=== PATIENT | male | born 1930 | race Caucasian/White ===

== ENCOUNTER → 2017-07-01 | Outpatient (CLI) | payer MEDICARE ==
[2017-07-01 11:37] LABS: CALCIUM 9.4 mg/dL (8.4-10.2); CREATININE, serum 1.02 mg/dL (0.66-1.25); POTASSIUM 4.5 mmol/L (3.4-5.0)
== END ==
LOC: ZLAB.STJ 10:48
PROVIDERS: Internal Medicine
DX: I10 Essential (primary) hypertension (principal)

== ENCOUNTER → 2018-03-20 | Outpatient (CLI) | payer MEDICARE, MEDICAID | LOC: COL.RAD 15:43 | DX: S62.524A Nondisplaced fracture of distal phalanx of right thumb, initial encounter for closed fracture (principal); W19.XXXA Unspecified fall, initial encounter ==

== ENCOUNTER → 2018-04-01 | Outpatient (CLI) | payer MEDICARE, MEDICAID ==
[2018-04-01 16:23] LABS: CALCIUM 9.3 mg/dL (8.4-10.2); CREATININE, serum 1.23 mg/dL (0.66-1.25); POTASSIUM 4.1 mmol/L (3.4-5.0)
== END ==
LOC: ZLAB.STJ 15:48 → ZCOL.LAB 15:48
PROVIDERS: Internal Medicine
DX: R79.89 Other specified abnormal findings of blood chemistry (principal)

== ENCOUNTER 2018-06-14 17:57 | Inpatient (IN) | payer MEDICARE, MEDICAID ==
[~2018-06-14] VITALS: Ht 162.6 cm; Wt 66.2 kg
[2018-06-14 18:40] LABS: BASO % 0.4 % (0.0-2.0); EOS % 0.3 % (0-4.0); GRAN # 4.9 (1.4-6.5); GRAN % 71.8 % (42.2-75.2); HEMATOCRIT 43.3 % (42.0-52.0); HEMOGLOBIN 13.8 g/dl (13.5-18.0); LYMPH # 1.1 (1.2-3.4); LYMPH % 15.5 % (20.0-51.0); MEAN CELL VOLUME 91 fl (80.0-100.0); MEAN CORPUSCULAR HEMOGLOBIN 29 pg (27.0-31.0); MEAN CORPUSCULAR HGB CONC 32 g/dl (33.0-37.0); MEAN PLATELET VOLUME 10.1 fl (7.4-10.4); MONO # 0.8 (0.1-0.6); MONO % 11.7 % (1.7-9.3); PLATELET COUNT 193 K/mm3 (130-400); RED BLOOD COUNT 4.74 M/mm3 (4.20-5.60); REDCELL DISTRIBUTION WIDTH-CV 14.6 % (11.5-14.5)
[2018-06-14 18:45] LABS: INR 1.2 (0.8-3.0); PROTHROMBIN TIME 13.2 SECONDS (9.7-12.8)
[2018-06-14 18:50] LABS: ALBUMIN 4.1 gm/dL (3.5-5.0); BILIRUBIN,TOTAL 0.7 mg/dL (0.0-1.0); CALCIUM 9.5 mg/dL (8.4-10.2); CREATININE, serum 1.54 mg/dL (0.66-1.25); POTASSIUM 4.1 mmol/L (3.4-5.0); TOTAL PROTEIN 7.7 gm/dL (6.4-8.2)
[2018-06-14 19:06] LABS: TROPONIN-I 0.047 ng/mL (0.000-0.035)
[2018-06-14 19:16] LABS: COLLECTION METHOD CATHETER
[2018-06-14 19:31] LABS: AMORPHOUS CRYSTAL Present /uL; BUDDING YEAST Present /hpf; MUCOUS Present /lpf; PH 5 (5-8); SQUAMOUS EPITHELIAL 0-2 /hpf; URINE APPEARANCE Hazy; URINE BACTERIA Many /hpf; URINE BILIRUBIN Negative (NEGATIVE); URINE BLOOD 2+ (NEGATIVE); URINE COLOR Yellow; URINE GLUCOSE Negative (NEGATIVE); URINE KETONE Trace (NEGATIVE); URINE LEUKOCYTE ESTERASE Trace (NEGATIVE); URINE NITRATE Negative (NEGATIVE); URINE PROTEIN(semi-quant) 1+ (NEGATIVE); URINE RBC 20-50 /hpf; URINE UROBILINOGEN Negative (NEGATIVE)
[2018-06-14] MEDS ORDERED: ATIVAN 0.50.5 MG/TAB PO (20:41)
[2018-06-14] MEDS ORDERED: TYLENOL 325MG325 MG PO (20:42)
[2018-06-14] MEDS ORDERED: NORVASC 10MG10 MG PO (20:42)
[2018-06-14] MEDS ORDERED: ULTRAM 50MG TAB50 MG PO (20:43)
[2018-06-14] MEDS ORDERED: TOPROL XL 25MG25 MG PO (20:43)
[2018-06-14] MEDS ORDERED: LOPRESSOR 225 MG/TAB PO (20:43)
[2018-06-14 21:31] VITALS: BP 134/51; PULSE 87; TEMP 98.4
--- NOTE | 2018-06-14 21:32 | NUR ---
Patient arrived to room at 1930.
[2018-06-14] MEDS ORDERED: FLONASEALLERGY NS (21:39)
--- NOTE | 2018-06-14 21:56 | NUR ---
Patient resting in room, transported from ED. Awake for transport but is now asleep. Patient is confused- has Alzheimer's. On droplet precautions for positive influenza a. IV site free of complications. Diminished lung sounds, with some expiratory wheezes. FLACC of 0. Able to follow some commands- able to squeeze hands for neuro checks. Indwelling catheter, cloudy urine.
[2018-06-15] VITALS (7 sets, daily range): BP systolic 125–171; BP diastolic 48–69; PULSE 68–80; TEMP 97.5–98.8
--- NOTE | 2018-06-15 05:12 | NUR ---
Patient slept most of the shift. FLACC pain of 0/10. Indwelling catheter in place with cloudy urine. VSS, afebrile.
--- NOTE | 2018-06-15 09:35 | NUR ---
Pt is alert, minimally verbal, ignores this RN or reacts combatively. At shift change he was pinching then swinging at me, now he is mostly unresponsive. Gently held my hand when I touched him, asked "what the hell are you doing?" when I looked at his feet, otherwise refusing to sip water and take his pills, unable to take a deep breath for respiratory assessment. Oxygen applied at 2 L via NC, lungs are somewhat coarse but this RN had poor air flow to assist assessment. Physical assessment completed, IV fluids infusing to LH, site free of redness,swelling. Call light in reach, will continue to monitor
--- NOTE | 2018-06-15 13:44 | NUR ---
rEPORT NIKHIL TO Nikole LORD. Pt combative with lab, rfusing draw. THis RN spoke with Dr Nobles who encouraged waiting until tomorrow and reattempting. Pt slept all of this Rn's shift, drank some water but spat tamaflu back out. Call light in reach, fluids infusing
--- NOTE | 2018-06-15 15:30 | NUR ---
PT COMBATIVE UNABLE TO DO BREATHING TX.
--- NOTE | 2018-06-15 15:35 | NUR ---
RT reports pt cussing and grabbing her hand when attempting to do a pulse ox check.
--- NOTE | 2018-06-15 17:56 | NUR ---
Pt resting in bed with eyes closed, resp even and unlabored. IVF rate decreased to 100 ml/hr per orders. Call light in reach.
--- NOTE | 2018-06-15 21:12 | NUR ---
UNABLE TO ASSESS AND ADMIN. TREATMENT. COMBATITIVE.
--- NOTE | 2018-06-15 22:53 | NUR ---
Patient assessed. Alert, drowsy, and confused. No answering questions appropriately most of the time. Denies having pain and discomfort, and no s/sx of pain or discomfort is noted at this time, such as facial grimacing and moaning. Patient needed lots of encouragement to take Tamiflu and drink water. Worked best by mixing medication whole with applesauce. Wanted to keep sleeping, and seemed to get upset that staff was waking him up. Did reach out to knock over water that was being encouraged. Did drink small amount of cranberry juice. Wearing oxygen at 2 L/min via NC. Denies having SOB and dyspnea. LS with fine, expiratory crackles in bilateral upper lobes, clear in lower lobes bilaterally. Occasional moist cough, unable to observe any sputum. Indwelling mayorga catheter patent, draining dark yellow urine with sediment present. Left hand contracted, and patient has bilateral foot drop. Got upset with staff when trying to flex bilateral feet, and when trying to open left hand. Washcloth in left hand. Patient NPO after midnight for Lexiscan on the . Voices no needs at this time. Staff repositioned in bed. Resting in bed with eyes closed at this time. Call light is within reach.
[2018-06-16] VITALS (9 sets, daily range): BP systolic 134–175; BP diastolic 50–90; PULSE 64–77; TEMP 97.5–98.5
--- NOTE | 2018-06-16 00:27 | NUR ---
Allowed staff to provide repositioning in bed and checking VS without any combative behaviors. No s/sx of pain or discomfort noted at this time, such as facial grimacing and moaning. Resting in bed with eyes closed at this time. Call light is within reach.
--- NOTE | 2018-06-16 03:50 | NUR ---
Resting in bed with eyes closed at this time. No s/sx of pain or discomfort noted, such as facial grimacing and moaning. Repositioned in bed. Currently oxygen level is 93% on oxygen at 3 L/min via NC. Denies having SOB and dyspnea. NS running at 100 ml/hr to peripheral IV to left hand without any complications. Indwelling mayorga catheter continues to drain dark yellow urine with sediment via dependent drainage. Call light is within reach.
--- NOTE | 2018-06-16 06:01 | NUR ---
Patient repositioned side to side throughout the night. No s/sx of pain or discomfort. Patient's combative behaviors decreased when staff explained cares to patient, and only did one task at a time. Needed lots of encouragement to take drinks of water and to take medications. Sleepy but wakes to vebal/tactile stimuli. Oxygen continues to be on. Continues on droplet precautions for influenza. Resting in bed with eyes closed at this time, call light is within reach.
--- NOTE | 2018-06-16 08:31 | NUR ---
PT BECOMES AGITATED WHEN GIVING BREATHING TX. SWINGING WITH CLOSED FIST. UNABLE TO FINISH TX.
--- NOTE | 2018-06-16 09:30 | NUR ---
Pt is alert to voice, occasionally cooperative, allowed me to give him heparin SubQ shot, drank water and Ensure shake. Does not answer any of my questions. Physical assessmetn complete and WNL. Lungs are slightly diminished, oxygen applied at 3 L via NC. Johnson gravity draining slightly hazy yellow urine. INt and IV site free of redness, swelling. This Rn assisted him to drink Ensure at bedside, no coughing or swallowing issues noted. Call elvira levy, will continue to monitor
--- NOTE | 2018-06-16 13:49 | NUR ---
SW attempted to speak with patient but he was non verbal. Per Simeon at [facility], patient lives in penitentiary care and is seen by Dr. Iniguez. Patient does not have DPOA. SW will continue to follow.
--- NOTE | 2018-06-16 14:15 | NUR ---
This RN spoke with director of [facility] who informed me pt has no current DPOA. Renu Chang was the only family member on record but was substantiated for financial exploitation and is unable to be reached. There is currently no DPOA although multiple attempts have been made to procure a state guardian. Social work informed.
[2018-06-16 14:57] LABS: BASO % 0.2 % (0.0-2.0); EOS # 0.1 (0.0-0.7); EOS % 1.7 % (0-4.0); GRAN # 2.6 (1.4-6.5); GRAN % 62.1 % (42.2-75.2); HEMOGLOBIN 12.6 g/dl (13.5-18.0); LYMPH # 1.1 (1.2-3.4); MEAN CELL VOLUME 90 fl (80.0-100.0); MEAN CORPUSCULAR HEMOGLOBIN 29 pg (27.0-31.0); MEAN CORPUSCULAR HGB CONC 32 g/dl (33.0-37.0); MEAN PLATELET VOLUME 9.9 fl (7.4-10.4); MONO # 0.4 (0.1-0.6); MONO % 8.8 % (1.7-9.3); PLATELET COUNT 162 K/mm3 (130-400); RED BLOOD COUNT 4.33 M/mm3 (4.20-5.60); REDCELL DISTRIBUTION WIDTH-CV 14.2 % (11.5-14.5)
[2018-06-16 15:17] LABS: ALBUMIN 3.3 gm/dL (3.5-5.0); BILIRUBIN,TOTAL 0.4 mg/dL (0.0-1.0); CALCIUM 8.3 mg/dL (8.4-10.2); CHOLESTEROL RISK RATIO 6.8; CREATININE, serum 0.93 mg/dL (0.66-1.25); TOTAL PROTEIN 6.4 gm/dL (6.4-8.2)
[2018-06-16 15:28] LABS: TROPONIN-I 0.023 ng/mL (0.000-0.035)
--- NOTE | 2018-06-16 15:48 | NUR ---
SW has been informed that patient does not have a DPOA or next of kin. Patient's previous "next of kin," Renu has been substantiated for financial exploitation. Patient has dementia and is unable to make his own decisions. Concepcion reported that Pretty from [facility] has tried to get a guardian appointed but has not been successful. NELSON made an APS report because the guardianship program requires a DCF referral. APS intake #[id number]
--- NOTE | 2018-06-16 16:35 | NUR ---
Through shift pt vitals remain stable and afebrile. He has denied pain and SOB, remains on 2 L oxygen via NC. Simon is draining slightly hazy light yellow urine. Pt assiste to eat and drink Ensures, his appetite is low to moderate. He has slept through most of day. At times he is cooperative and alert, at other times he strikes at staff and swears at us. Call light in reach, no further needs at this time.
--- NOTE | 2018-06-16 19:15 | NUR ---
rEPORT GIVEN TO Ofelia LORD, pt resting, no apparent needs
--- NOTE | 2018-06-16 21:23 | NUR ---
Patient assessed at this time. Alert and oriented to self. Disoriented to time, place, and situation. Has been talking to himself more and laughing. Denies having pain and discomfort. Oxygen on 2 L/min via NC. No cough noted at this time. LS CTA. Respirations even and unlabored. Heart with regular rate and rhythm. No edema. Two peripheral IVs, one to left hand, one to right forearm. Both flushed without any s/sx of infiltration. Indwelling mayorga catheter patent, draining clear yellow urine via dependent drainage. Voices no needs or concerns at this time. Continues on droplet precautions. Resting in bed with eyes closed at this time. Call light is within reach.
--- NOTE | 2018-06-16 22:26 | NUR ---
Patient unable to take PO potassium replacement. Changed to IV. Tolerating well at this time.
--- NOTE | 2018-06-16 23:49 | NUR ---
Patient repositioned. No s/sx of pain or discomfort noted at this time, such as facial grimacing and moaning. Allowed this nurse to obtain VS and give Heparin without any combative behaviors.
[2018-06-17 03:57] VITALS: BP 127/61; PULSE 64; TEMP 98.2
--- NOTE | 2018-06-17 04:59 | NUR ---
Continues to be resting in bed without any s/sx of pain or discomfort, such as facial grimacing and moaning. Repositioned in bed every two hours. On oxygen at 2 L/min via NC. Respirations are even and unlabored. Indwelling mayorga catheter is patent, and draining clear yellow urine via dependent drainage. Continues to receive IV potassium at this time per potassium replacement protocol. Last dose hung and will be complete around 0545. Patient has not been combative tonight.
--- NOTE | 2018-06-17 05:52 | NUR ---
Completed potassium replacement at this time per protocol.
--- NOTE | 2018-06-17 07:04 | NUR ---
Report given to POP Chirinos. Resting in bed asleep.
[2018-06-17 07:31] LABS: BASO % 0.4 % (0.0-2.0); EOS # 0.1 (0.0-0.7); EOS % 1.9 % (0-4.0); GRAN % 56.8 % (42.2-75.2); HEMATOCRIT 38.8 % (42.0-52.0); HEMOGLOBIN 12.7 g/dl (13.5-18.0); LYMPH # 1.6 (1.2-3.4); LYMPH % 30.4 % (20.0-51.0); MEAN CELL VOLUME 89 fl (80.0-100.0); MEAN CORPUSCULAR HEMOGLOBIN 29 pg (27.0-31.0); MEAN CORPUSCULAR HGB CONC 33 g/dl (33.0-37.0); MEAN PLATELET VOLUME 10.2 fl (7.4-10.4); MONO # 0.5 (0.1-0.6); MONO % 10.3 % (1.7-9.3); PLATELET COUNT 167 K/mm3 (130-400); RED BLOOD COUNT 4.35 M/mm3 (4.20-5.60); REDCELL DISTRIBUTION WIDTH-CV 14.1 % (11.5-14.5)
[2018-06-17 07:45] VITALS: BP 148/61; PULSE 73; TEMP 98.5
[2018-06-17 07:46] LABS: ALBUMIN 3.2 gm/dL (3.5-5.0); BILIRUBIN,TOTAL 0.5 mg/dL (0.0-1.0); CALCIUM 8.5 mg/dL (8.4-10.2); CREATININE, serum 0.92 mg/dL (0.66-1.25); POTASSIUM 3.9 mmol/L (3.4-5.0); TOTAL PROTEIN 6.3 gm/dL (6.4-8.2)
--- NOTE | 2018-06-17 08:45 | NUR ---
Pt is alert but disoriented, does not respond to questions, did squeeze my hands upon request. Pt incontinent of large soft formed BM and during changing, despite frequent explanations, pt swiped at and pinched nurse and aid. Complete bed bath adn linen change provided. Simon continues to gravity drain clear yellow urine. Oxygen applied at 3 L via NC, pt in no apparent distress. Assisted to drink a vanilla Ensure. Call light in reach, no further eeds
[2018-06-17 11:37] VITALS: BP 138/75; PULSE 74; TEMP 98.6
[2018-06-17 15:26] VITALS: BP 145/62; PULSE 89; TEMP 98.3
--- NOTE | 2018-06-17 19:12 | NUR ---
Report gi en to Ofelia RN, pt resting, had uneventufl day, vitals stable pt afebrile, ate better than yesterday but slept most of day. Oxygen at 3 L via NC, call light in reach
--- NOTE | 2018-06-17 20:07 | NUR ---
Resting in bed. Repositioned. Assessment complete. Lungs clear. Heart sounds normal. Bowels active. Bilateral lower leg edema +1. Staff assisted patient with eating dinner. Took PO medications well. INT to left wrist and right forearm clean and intact. Denies needs. Denies pain. Call light in reach. Bed alarm in place.
[2018-06-17 20:08] VITALS: BP 153/74; PULSE 71; TEMP 97.9
--- NOTE | 2018-06-17 22:45 | NUR ---
INT sites due to be change. Both flushing well. Patient is easily agitated and combative at time this evening. Will closely monitor sites and change when necessary.
[2018-06-17 23:56] VITALS: BP 168/61; PULSE 69; TEMP 98.6
--- NOTE | 2018-06-18 | NUR ---
Repositioned. Resting in bed. Call light in reach.
--- NOTE | 2018-06-18 02:11 | NUR ---
Repositioned. Tolerated well. Call light in reach.
[2018-06-18 05:08] VITALS: BP 164/61; PULSE 65; TEMP 98.3
--- NOTE | 2018-06-18 05:13 | NUR ---
Resting in bed. Repositioned. Does not appear in pain at this time. Call light in reach. Bed alarm in place.
--- NOTE | 2018-06-18 06:11 | NUR ---
Patient in bed asleep. Uneventful night. Repositioned Q2H. No bowel movement throughout night. No signs of pain or discomfort. Simon draining to dependent drainage free of kinks. Yellow clear urine. Call light within reach. Bed alarm in place.
[2018-06-18 07:15] VITALS: BP 153/57; PULSE 66; TEMP 98.5
--- NOTE | 2018-06-18 08:20 | NUR ---
Patient resting in bed, assessment complete, patient got slightly agitated but was easily redirected. Did take morning medication whole in pudding without difficulty. Call light is within reach.
[2018-06-18] MEDS ORDERED: OMNICEF 300MG300 MG PO (10:20)
[2018-06-18] MEDS ORDERED: TAMIFLU30 MG PO (10:21)
[2018-06-18] MEDS ORDERED: IPRATROPIUM BROM3 M1 IH (10:21)
[2018-06-18] MEDS ORDERED: SEROQUEL 2525 MG/TAB PO (10:22)
[2018-06-18] MEDS ORDERED: PLAVIX 75MG TAB75 MG PO (10:26)
[2018-06-18 10:54] VITALS: BP 166/62; PULSE 73; TEMP 98.5
--- NOTE | 2018-06-18 12:59 | NUR ---
SW attended clinical rounds. Patient will discharge back to [facility]. SW faxed discharge orders to [facility] and completed an IM. [facility] will be here at 1pm to pickling solution maker patient.
--- NOTE | 2018-06-18 15:00 | NUR ---
Patient discharged home to [facility] staff. Simon removed prior to dismissal. INTs discontinued. Pt became agitated and combative during this time. Assisted to wheelchair, tolerated fair. Was cooperative with wearing mask.
== END 2018-06-18 15:04 | DRG 871 ==
LOC: COL.ER 17:57 → MEDICAL 20:03
PROVIDERS: Emergency Medicine; Nurse Practitioner Family; ADMIT Hospitalist
DX: A41.9 Sepsis, unspecified organism (principal); J96.01 Acute respiratory failure with hypoxia; I21.A1 Myocardial infarction type 2; N39.0 Urinary tract infection, site not specified; G93.49 Other encephalopathy; N17.9 Acute kidney failure, unspecified; Z66 Do not resuscitate; J09.X9 Influenza due to identified novel influenza A virus with other manifestations; I10 Essential (primary) hypertension; E78.5 Hyperlipidemia, unspecified; G30.9 Alzheimer's disease, unspecified; F02.80 Dementia in other diseases classified elsewhere, unspecified severity, without behavioral disturbance, psychotic disturbance, mood disturbance, and anxiety; B96.20 Unspecified Escherichia coli [E. coli] as the cause of diseases classified elsewhere; E86.0 Dehydration; E87.6 Hypokalemia
CPT/HCPCS: 99222-AI; 99231-AI; 99232-AI; 99239; A4216; J0696; J1644; J3480; J7030

== ENCOUNTER 2018-08-10 19:12 | Inpatient (IN) | payer MEDICARE, MEDICAID ==
[2018-08-10] VITALS (43 sets, daily range): BP systolic 164; BP diastolic 86; PULSE 80; TEMP 97.6; O2SAT 92–98
[~2018-08-10] VITALS: Ht 177.8 cm; Wt 75.1 kg
[~2018-08-10 19:12] MED LIST: ATIVAN 0.50.5 MG/TAB PO; FLONASEALLERGY NS; IPRATROPIUM BROM3 M1 IH; LOPRESSOR 225 MG/TAB PO; NORVASC 10MG10 MG PO; OMNICEF 300MG300 MG PO; PLAVIX 75MG TAB75 MG PO; SEROQUEL 2525 MG/TAB PO; TAMIFLU30 MG PO; TOPROL XL 25MG25 MG PO; TYLENOL 325MG325 MG PO; ULTRAM 50MG TAB50 MG PO
[2018-08-10 19:36] LABS: BASO # 0.1 (0.0-0.2); BASO % 0.7 % (0.0-2.0); EOS # 0.2 (0.0-0.7); EOS % 0.9 % (0-4.0); GRAN # 15.8 (1.4-6.5); HEMATOCRIT 41.8 % (42.0-52.0); HEMOGLOBIN 13.5 g/dl (13.5-18.0); LYMPH # 1.4 (1.2-3.4); LYMPH % 7.5 % (20.0-51.0); MEAN CELL VOLUME 90 fl (80.0-100.0); MEAN CORPUSCULAR HEMOGLOBIN 29 pg (27.0-31.0); MEAN CORPUSCULAR HGB CONC 32 g/dl (33.0-37.0); MEAN PLATELET VOLUME 10.8 fl (7.4-10.4); MONO # 0.8 (0.1-0.6); MONO % 4.2 % (1.7-9.3); PLATELET COUNT 209 K/mm3 (130-400); RED BLOOD COUNT 4.64 M/mm3 (4.20-5.60); REDCELL DISTRIBUTION WIDTH-CV 14.5 % (11.5-14.5)
[2018-08-10 19:37] LABS: PROTHROMBIN TIME 11.4 SECONDS (9.7-12.8)
[2018-08-10 19:38] LABS: ARTERIAL BLD GAS O2 SATURATION 93.5 % (92-100); ARTERIAL BLD GAS TCO2 CT 23.7; ARTERIAL BLOOD GAS BASE EXCESS -3.9 (-2-2); ARTERIAL BLOOD GAS HCO3 22.4 meq/L (22-26); ARTERIAL BLOOD GAS pH 7.31 (7.35-7.45)
[2018-08-10 19:39] LABS: PARTIAL THROMBOPLASTIN TIME 33.4 SECONDS (26.0-37.0)
[2018-08-10 19:50] LABS: ALANINE AMINOTRANSFERASE < 6 U/L (21-72); ALBUMIN 3.7 gm/dL (3.5-5.0); ALKALINE PHOSPHATASE 102 U/L (50-136); ANION GAP 9 mmol/L (7-16); AST,SGOT 15 U/L (15-37); BILIRUBIN,TOTAL 0.4 mg/dL (0.0-1.0); BLOOD UREA NITROGEN 22 mg/dL (9-20); C-REACTIVE PROTEIN 1.4 mg/dL (0.0-0.9); CALCIUM 8.7 mg/dL (8.4-10.2); CARBON DIOXIDE 24 mmol/L (22-30); CHLORIDE 107 mmol/L (98-107); CREATININE, serum 1.08 (0.66-1.25); GLUCOSE 228 mg/dL (74-106); POTASSIUM 4.1 mmol/L (3.4-5.0); SODIUM 140 mmol/L (137-145)
[2018-08-10 19:56] LABS: COLLECTION METHOD CATHETER
[2018-08-10 20:04] LABS: TROPONIN-I 0.036 ng/mL (0.000-0.035)
[2018-08-10 20:08] LABS: MUCOUS Present /lpf; PH 5 (5-8); SQUAMOUS EPITHELIAL None Seen /hpf; URINE APPEARANCE Hazy; URINE BACTERIA None Seen /hpf; URINE BILIRUBIN Negative (NEGATIVE); URINE BLOOD 1+ (NEGATIVE); URINE COLOR Yellow; URINE GLUCOSE 1+ (NEGATIVE); URINE KETONE Negative (NEGATIVE); URINE LEUKOCYTE ESTERASE Negative (NEGATIVE); URINE NITRATE Negative (NEGATIVE); URINE PROTEIN(semi-quant) 2+ (NEGATIVE); URINE UROBILINOGEN Negative (NEGATIVE)
[2018-08-10 22:11] LABS: ARTERIAL BLD GAS O2 SATURATION 96.7 % (92-100); ARTERIAL BLD GAS TCO2 CT 20.8; ARTERIAL BLOOD GAS HCO3 19.7 meq/L (22-26); ARTERIAL BLOOD GAS PCO2 35.6 mmHg (35-45); ARTERIAL BLOOD GAS PO2 96.3 mmHg (80-100); ARTERIAL BLOOD GAS pH 7.36 (7.35-7.45)
[2018-08-10 22:51] LABS: HEMATOCRIT 38.5 % (42.0-52.0); HEMOGLOBIN 12.5 g/dl (13.5-18.0)
--- NOTE | 2018-08-10 22:55 | NUR ---
Patient arrived to ICU accompanied by POP Moore. Patient non-verbal, relaxed on bipap at this time. Patient assessment completed at this time, will continue to monitor and assess.
[2018-08-10] MEDS ORDERED: TYLENOL 325MG325 MG PO (23:13)
[2018-08-11] VITALS (571 sets, daily range): BP systolic 141–162; BP diastolic 72–89; PULSE 48–105; TEMP 97.8–99.3; O2SAT 85–100
[2018-08-11 05:15] LABS: HEMATOCRIT 40.4 % (42.0-52.0); HEMOGLOBIN 12.7 g/dl (13.5-18.0); MEAN CELL VOLUME 91 fl (80.0-100.0); MEAN CORPUSCULAR HEMOGLOBIN 29 pg (27.0-31.0); MEAN CORPUSCULAR HGB CONC 31 g/dl (33.0-37.0); MEAN PLATELET VOLUME 10.6 fl (7.4-10.4); PLATELET COUNT 175 K/mm3 (130-400); RED BLOOD COUNT 4.43 M/mm3 (4.20-5.60); REDCELL DISTRIBUTION WIDTH-CV 14.4 % (11.5-14.5)
[2018-08-11 05:31] LABS: ALANINE AMINOTRANSFERASE < 6 U/L (21-72); ALBUMIN 3.5 gm/dL (3.5-5.0); ALKALINE PHOSPHATASE 87 U/L (50-136); ANION GAP 13 mmol/L (7-16); AST,SGOT 19 U/L (15-37); BILIRUBIN,TOTAL 0.5 mg/dL (0.0-1.0); BLOOD UREA NITROGEN 19 mg/dL (9-20); CALCIUM 8.6 mg/dL (8.4-10.2); CARBON DIOXIDE 21 mmol/L (22-30); CHLORIDE 109 mmol/L (98-107); CREATININE, serum 1.07 (0.66-1.25); GLUCOSE 166 mg/dL (74-106); SODIUM 142 mmol/L (137-145); TOTAL PROTEIN 6.8 gm/dL (6.4-8.2)
[2018-08-11 05:55] LABS: ARTERIAL BLD GAS TCO2 CT 15.7; ARTERIAL BLOOD GAS BASE EXCESS -7.9 (-2-2); ARTERIAL BLOOD GAS PCO2 24.5 mmHg (35-45); ARTERIAL BLOOD GAS PO2 111.9 mmHg (80-100)
[2018-08-11 06:10] LABS: LYMPHOCYTE 3 % (20.0-51.0); NEUTROPHILS 97 % (42.0-75.2); PLATELET ESTIMATE NORMAL (NORMAL)
--- NOTE | 2018-08-11 07:00 | NUR ---
Bedside report received from POP Sanchez. POC discussed. Care taken over at this time.
--- NOTE | 2018-08-11 10:00 | NUR ---
attempted to call family/dpoa for this patient. 2 different numbers called from paperwork in the chart. no answer at one of the numbers and the other number was for a hospice facility.
--- NOTE | 2018-08-11 14:00 | NUR ---
Patient placed on room air at this time.
--- NOTE | 2018-08-11 17:35 | NUR ---
Report given to POP Orourke via phone. Plan of care discussed. Patient will transfer up to room 355.
--- NOTE | 2018-08-11 18:00 | NUR ---
Patient transferred up to room 355. POP Orourke, meets us in room upon arrival. Patient care handed off at this time.
--- NOTE | 2018-08-11 18:18 | NUR ---
Pt up to medical unit form ICU. Pt transferred by bed. Pt has dementia and is confused and nonverbal communication. Pt curses at nurse and trys to hit at nurse at times. Pt redirects and calms quickly when left alone. Pt skin pink and temp was reported to be 99.3 upon transfer. Pt receiving IV Zosyn now that was started in ICU. Pt IV's patent and no infiltration or redness noted. Pt has call light in reach and located in room across from nurse station. Pt on fall precautions. Med reconciled by list in chart from [facility]. Leonela LORD states that she attempted to call DPOA but numbers were not accurate for her. Pt has dinner ordered and is on pureed diet.
--- NOTE | 2018-08-11 18:50 | NUR ---
Called dining svc and pt food is on its way.
--- NOTE | 2018-08-11 19:40 | NUR ---
pt report given to Kayley LORD
--- NOTE | 2018-08-11 22:06 | NUR ---
PT IN BED WITH HOB ELEVATED TO 60 DEGREE ANGLE. PT SPEAKING BUT NOT MAKING SENSE. PT DOES NOT APPEAR TO BE IN ANY PAIN OR DISCOMFORT. CALL LIGHT IN REACH AND BED ALARM ON.
[2018-08-12 00:46] VITALS: BP 138/74; PULSE 94; TEMP 98.7
--- NOTE | 2018-08-12 03:02 | NUR ---
PT HAS BEEN SWINGING AND TRYING TO HIT STAFF MEMBERS. PT HAD TAKEN TELEMETRY OFF, BUT LEFT OFF DUE TO THE FACT THAT PT MAKING TREATS THAT HE WAS GOING TO HIT. PT HAS BEEN SLEEPING/RESTING, RESP EVEN AND UNLABORED, WITH NO S/S OF PAIN OR DISCOMFORT, CALL LIGHT WITHIN REACH AND BED ALARM ON. ALSO, WITHIN SIGHT OF NURSES STATION.
[2018-08-12 04:26] VITALS: BP 153/70; PULSE 80; TEMP 97.5
[2018-08-12 06:15] LABS: BASO % 0.3 % (0.0-2.0); EOS # 0.1 (0.0-0.7); EOS % 0.8 % (0-4.0); GRAN # 9.4 (1.4-6.5); GRAN % 78.2 % (42.2-75.2); HEMOGLOBIN 11.4 g/dl (13.5-18.0); LYMPH # 1.4 (1.2-3.4); MEAN CELL VOLUME 91 fl (80.0-100.0); MEAN CORPUSCULAR HEMOGLOBIN 30 pg (27.0-31.0); MEAN CORPUSCULAR HGB CONC 33 g/dl (33.0-37.0); MEAN PLATELET VOLUME 10.5 fl (7.4-10.4); MONO % 8.3 % (1.7-9.3); PLATELET COUNT 175 K/mm3 (130-400); RED BLOOD COUNT 3.86 M/mm3 (4.20-5.60); REDCELL DISTRIBUTION WIDTH-CV 15.1 % (11.5-14.5)
[2018-08-12 06:21] LABS: HEMATOCRIT 35.1 % (42.0-52.0)
[2018-08-12 06:28] LABS: CALCIUM 8.3 mg/dL (8.4-10.2); CREATININE, serum 1.17 (0.66-1.25); POTASSIUM 3.6 mmol/L (3.4-5.0)
--- NOTE | 2018-08-12 07:00 | NUR ---
Pt asleep in room upon entering, did not open eyes until touching shoulder. Pt able to follow commands but unable to speak. Reported from POP Zaldivar this is no change from pt's baseline. Audible wheeze assessed. Speach pathologist states yesterday pt was more awake, able to swallow better and didnt have the wheeze. No visitors present
--- NOTE | 2018-08-12 07:39 | NUR ---
PT WAS MORE PLEASANT THIS AM AND NO BEHAVIORS SO FAR. PT ALLOWED US TO PUT TELEMETRY BACK ON. TRIED TALKING TO PT, BUT NO ANSWER. PT DOES NOT APPEAR TO BE IN ANY PAIN OR DISTRESS. CALL LIGHT WITHIN REACH, BED ALARM ON, AND CARE TRANSFERED OVER TO ALONDRA LORD.
[2018-08-12 07:55] VITALS: BP 186/104; PULSE 89; TEMP 97.9
--- NOTE | 2018-08-12 08:29 | NUR ---
The patient resides at [facility] for long-term care. Due to the patient having dementia, NELSON attempted to contact the patient's DPOA-HC, Renu, to discuss discharge plan. The phone number provided was to [facility]. NELSON attempted to contact an alternative phone number and that number was not valid. NELSON then contacted Simeon at [facility] for another alternate phone number. Simeon informed NELSON student that the patient has no family and that they have not been able to get ahold of that DPOA-HC for over a year. Simeon reports that they are working on getting the patient a guardian. During the patient's last hospital stay in June, an APS report was made. NELSON to continue to follow.
[2018-08-12 11:22] VITALS: BP 171/94; PULSE 78; TEMP 98.7
--- NOTE | 2018-08-12 12:45 | NUR ---
Assumed care of pt. Pt resting in bed with eyes closed. IV fluids infusing without difficulty. Bed alarm on. Call light within reach.
--- NOTE | 2018-08-12 15:58 | NUR ---
SW student faxed updates to [facility] at [facility].
--- NOTE | 2018-08-12 16:23 | NUR ---
Notified by tele at 1545 that heart rate was 155. Pt was very diaphoretic. Temp 97.9 axillary, spO2 79% on 3L O2/nc, BP 175/123, HR 124. Audible wheezing, lungs with coarse crackles. SAE Cole notified of pt condition. 02 increased to 6L/nc without change in spO2. Pt changed to oxymask at 10L. O2 increased to 90%. PRN apresoline given for elevated BP. Dr. Nobles and Kelsey at bedside. One time dose of Cardizem given after EKG completed.
[2018-08-12 16:24] LABS: ARTERIAL BLOOD GAS BASE EXCESS -7.7 (-2-2); ARTERIAL BLOOD GAS HCO3 18.7 meq/L (22-26); ARTERIAL BLOOD GAS PCO2 41.4 mmHg (35-45); ARTERIAL BLOOD GAS PO2 91.6 mmHg (80-100); ARTERIAL BLOOD GAS pH 7.27 (7.35-7.45)
--- NOTE | 2018-08-12 16:42 | NUR ---
Patient declined. Consulted with Dr ledesma, patient is DNR DNI. SW talked with sharmaine at [facility] who said that they are working on guardianship with the state however there is no family or next of kin to contact. Scarlett Escobedo at [facility] is the contact [phone]. [facility] reports they would like to use [facility] and that they are working with their social media executive and the state for funding to pay for patients burial.
--- NOTE | 2018-08-12 16:45 | NUR ---
Decision made by Dr. Nobles to make pt comfort care. Pt is resting in bed. O2 at 10L/oxymask. Danita Ferguson RN at bedside.
[2018-08-12 16:51] LABS: BASO # 0.1 (0.0-0.2); BASO % 0.4 % (0.0-2.0); EOS # 0.1 (0.0-0.7); EOS % 0.7 % (0-4.0); GRAN # 17.1 (1.4-6.5); GRAN % 80.9 % (42.2-75.2); LYMPH # 2.5 (1.2-3.4); LYMPH % 11.7 % (20.0-51.0); MEAN CELL VOLUME 90 fl (80.0-100.0); MEAN CORPUSCULAR HEMOGLOBIN 29 pg (27.0-31.0); MEAN CORPUSCULAR HGB CONC 32 g/dl (33.0-37.0); MEAN PLATELET VOLUME 10.5 fl (7.4-10.4); MONO # 1.2 (0.1-0.6); MONO % 5.6 % (1.7-9.3); PLATELET COUNT 254 K/mm3 (130-400); RED BLOOD COUNT 4.66 M/mm3 (4.20-5.60); REDCELL DISTRIBUTION WIDTH-CV 14.9 % (11.5-14.5)
[2018-08-12 17:18] LABS: CALCIUM 8.7 mg/dL (8.4-10.2); CREATININE, serum 1.17 (0.66-1.25); POTASSIUM 3.7 mmol/L (3.4-5.0)
[2018-08-12 17:36] LABS: TROPONIN-I 0.085 ng/mL (0.000-0.035)
[2018-08-12 17:45] LABS: HEMOGLOBIN 13.6 g/dl (13.5-18.0)
--- NOTE | 2018-08-12 17:45 | NUR ---
Pt resting in bed, very SOB and grimacing occasionally. PRN Roxanol given for discomfort/air hunger. POP Samayoa at bedside.
--- NOTE | 2018-08-12 18:34 | NUR ---
called and left message with process eng Lazara that patient has no family and has been placed on comfort cares.
--- NOTE | 2018-08-12 20:15 | NUR ---
Completed medication administration and assessment; PT tolerated all cares well; PT non-verbal during assessment; Continues 5L of O2 via mask; PT placed on comfort cares; PT continues to have dementia as baseline, non-verbal or minimal communication, dyspnia at rest with shallow breathing EXP wheezing and coarse crackles; No further assessed pain or concerns at time of rounds; PT assisted to comfortable position in bed with call light within reach; Will continue to monitor. CDA
--- NOTE | 2018-08-13 05:12 | NUR ---
PT resting intermittently throughout the night; continues comfort cares; No visible pain or discomfort at time of rounds; Simon in place and continues to drain clear yellow urine to dependent collection bag; No further acute concerns at time of rounds; Will continue to monitor. CDA
--- NOTE | 2018-08-13 07:17 | NUR ---
Report given to POP Meier; No significant changes or concerns during shift change. CDA
--- NOTE | 2018-08-13 08:09 | NUR ---
Assessment completed, patient is comfort cares only, alert/ disoriented and unable to answer questions or follow commands, he appeared to be short of breath and uncomfortable / I gave Oral Roxanol as ordered, FEATHER CURLING MACHINE OPERATOR and myself provided incontinent cares and repositioned for comfort, mayorga cath patent, Stg.II pressure ulcers noted to inner buttocks / 2 open areas noted will continue to monitor and provided care to keep patient comfortable
[2018-08-13] MEDS ORDERED: DULCOLAX S10 MG/SUPP RC (09:21)
[2018-08-13] MEDS ORDERED: TRANSDERM-0.5 MG/21 TD (09:21)
[2018-08-13] MEDS ORDERED: ARTIFICIAL TEAR15 M7 OP (09:21)
[2018-08-13] MEDS ORDERED: ATIVAN 0.50.5 MG/TAB PO (09:24)
[2018-08-13] MEDS ORDERED: ROXANOL 20MG20 MG/ML SL (09:24)
--- NOTE | 2018-08-13 09:56 | NUR ---
NELSON student attended clinical rounds. Patient has been moved to comfort measures with Dr. Nobles and Dr. Abraham signing off on the transition yesterday afternoon (note in chart). [facility] will accept the patient back on comfort care. EMS transfer has been set up for 1100am. SW completed IM form due to patient being unresponsive.
[2018-08-13 10:14] VITALS: BP 171/94; PULSE 78; TEMP 98.7
--- NOTE | 2018-08-13 11:15 | NUR ---
Patient is discharging to hospice at [facility] transferring at this time, IV discontinued and mayorga left in place
--- NOTE | 2018-08-13 11:36 | NUR ---
Pt supported through this am until discharge. 02 mask was rubbing on his nose so was switched to NC. He seemed to respond well to roxanol administration and was much calmer after medication had a chance to work. He was discharged to [facility] this morning on comfort care.
== END 2018-08-13 12:12 | disposition hospice, inpatient (51) | DRG 871 ==
LOC: COL.ER 19:12 → ICU 20:35 → MEDICAL 08-11 18:02
PROVIDERS: Emergency Medicine; Nurse Practitioner Family; Physician Assistant; ADMIT Internal Medicine
DX: A41.9 Sepsis, unspecified organism (principal); J96.01 Acute respiratory failure with hypoxia; I21.4 Non-ST elevation (NSTEMI) myocardial infarction; R65.21 Severe sepsis with septic shock; J69.0 Pneumonitis due to inhalation of food and vomit; E87.2 Acidosis; Z66 Do not resuscitate; Z51.5 Encounter for palliative care; I10 Essential (primary) hypertension; E78.5 Hyperlipidemia, unspecified; G30.9 Alzheimer's disease, unspecified; F02.80 Dementia in other diseases classified elsewhere, unspecified severity, without behavioral disturbance, psychotic disturbance, mood disturbance, and anxiety; Z85.46 Personal history of malignant neoplasm of prostate; I48.91 Unspecified atrial fibrillation
CPT/HCPCS: 99223-AI; 99231-AI; 99233-AI; 99239; J0360; J0456; J1650; J1940; J2060; J2543; J2930; J3370; J7030; J7050